=== PATIENT | female | born 1975 | race Two or more races ===

== ENCOUNTER 2024-07-25 13:44 | Inpatient (IN) | payer BC, OTHER ==
[~2024-07-25] VITALS: Ht 157.5 cm; Wt 75.0 kg
[2024-07-25] VITALS (7 sets, daily range): BP systolic 100–136; BP diastolic 55–74; PULSE 99–110; RESP 18–20; TEMP 98.7–99.1; O2SAT 94–100
--- NOTE | 2024-07-25 14:16 | ECG ---
[facility] Test Date: 2024-07-25 Test Time: 14:03:54 Pat Name: BALTAZAR PAINTER Department: ER Room: Gender: F Rating Specialist: MARIA ESTHER : 1975 Requested By: FRANCY MONTGOMERY Order Number: [id number] Reading MD: Measurements Intervals [place] Rate: 110 P: 23 FL: 121 QRS: 19 QRSD: 74 T: 26 QT: 317 QTc: 429 Interpretive Statements Sinus tachycardia Probable left atrial enlargement Left ventricular hypertrophy Baseline wander in lead(s) V1,V2,V3,V4,V5 Please click the below link to view image of tracing.
--- NOTE | 2024-07-25 14:43 | ED.PDOC ---
SOB-HPI HPI Comments 49 year old female presents to the ED with a chief complaint of shortness of breath onset 1 day. PMHx asthma. Patient states she has been experiencing shortness of breath for the past day, has used inhaler with no relief. She woke up today experiencing chest pain, headache, sore throat, and shortness of breath worsened. Last attack was about 1 week ago. Denies dizziness, nausea, vomiting, diarrhea, abdominal pain, blurry vision, fever, chills. No other symptoms or modifying factors present at this time. 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 Family History Family History: Reviewed,noncontributory to illness, No family hx of Cancer, No family hx of DM, No family hx of Heart marion, No family hx of HTN, No family hx ofKidney marion, No family hx of Liver marion, No family hx of Lung marion, No family hx of Stroke Social History Smoker: Non-Smoker Alcohol: Denies ETOH Use Drugs: Denies Drug Use Lives In: Home Constitutional: denies: chills, diaphoresis, fatigue, fever, malaise, sweats, weakness, others EENTM: reports: throat pain; denies: blurred vision, double vision, ear bleeding, ear discharge, ear drainage, ear pain, ear ringing, eye pain, eye redness, hearing loss, mouth pain, mouth swelling, nasal discharge, nose bleeding, nose congestion, nose pain, photophobia, tearing, throat swelling, voice changes, others Respiratory: reports: shortness of breath; denies: cough, hemoptysis, orthopnea, SOB at rest, SOB with excertion, stridor, wheezing, others Cardiovascular: reports: chest pain; denies: dizzy spells, diaphoresis, Dyspnea on exertion, edema, irregular heart beat, left arm pain, lightheadedness, palpitations, PND, syncope, others Gastrointestinal: denies: abdomen distended, abdominal pain, blood streaked bowels, constipated, diarrhea, dysphagia, difficulty swallowing, hematemesis, melena, nausea, poor appetite, poor fluid intake, rectal bleeding, rectal pain, vomiting, others Genitourinary: denies: abnormal vagina bleeding, burning, dyspareunia, dysuria, flank pain, frequency, hematuria, incontinence, pain, , vagina discharge, urgency, others Neurological: reports: headache; denies: dizziness, fainting, left sided numbness, left sided weakness, numbness, paresthesia, pre-existing deficit, right sided numbness, right sided weakness, seizure, speech problems, tingling, tremors, weakness, others Musculoskeletal: denies: back pain, gout, joint pain, joint swelling, muscle pain, muscle stiffness, neck pain, others Integumetry: denies: bruises, change in color, change in hair/nails, dryness, laceration, lesions, lumps, rash, wounds, others Allergic/Immunocompromised: denies: Difficulty Healing, Frequent Infections, Hives, Itching, others Hematologic/Lymphatic: denies: anemia, blood clots, easy bleeding, easy bruising, swollen glands, others Endocrine: denies: excessive hunger, excessive sweating, excessive thirst, excessive urination, flushing, intolerance to cold, intolerance to heat, unexplained weight gain, unexplained weight loss, others Psychiatric: denies: anxiety, bipolar disorder, depression, hopeless, panic disorder, schizophrenia, sleepless, suicidal, others All Other Systems: Reviewed and Negative Physical Exam General Appearance: Moderate Distress, Normal HEENT: Normal ENT Inspection, Pharynx Normal, TMs Normal Neck: Full Range of Motion, Non-Tender, Normal, Normal Inspection Respiratory: Chest Non-Tender, No Accessory Muscle Use, Wheezing Cardiovascular: No Edema, No JVD, No Murmur, No Gallop, Normal Peripheral Pulses, Tachycardia Breast Exam: Deferred Gastrointestinal: No Organomegaly, Non Tender, No Pulsatile Mass, Normal Bowel Sounds, Soft Genitalia: Deferred Pelvic: Deferred Rectal: Deferred Extremities: No calf tenderness, Normal capillary refill, Normal inspection, Normal range of motion, Non-tender, No pedal edema Musculoskeletal : Apperance: Normal Neurologic: Alert, quality assurance supervisor body II-XII nml as Tested, No Motor Deficits, Normal Affect, Normal Mood, No Sensory Deficits Cerebellar Function: Normal Reflexes: Normal Skin: Dry, Normal Color, Warm Peripheral Pulses: 3+ Radial (R), 3+ Radial (L) Lymphatic: No Adenopathy EKG EKG : Pulse Rate (adult): 110 Cardiac Rhythm: ST Was a procedure done? Was a procedure done?: No Differential Dx Differential Diagnosis: Anxiety, Asthma, Bronchitis, CHF, COPD X-Ray, Labs, Meds, VS Vital Signs Date Time Temp Pulse Resp B/P (MAP) Pulse Ox O2 Delivery O2 Flow Rate FiO2 07/25/24 16:55 99.1 110 18 136/55 98 0.0 21 99.1 07/25/24 15:05 18 98 Room Air* 0 21 07/25/24 14:43 110 07/25/24 14:04 110 07/25/24 13:56 99.1 122 24 136/55 (82) 100 99.1 07/25/24 13:56 24 100 Room Air* 0 21 Lab Test 07/25/24 16:27 07/25/24 15:48 Range/Units Urine Color Yellow Yellow Urine Clarity Clear Clear Urine pH 5.5 5.0-9.0 Urine Specific [place] 1.024 1.001-1.035 Urine Protein Negative Negative Urine Ketones Trace Negative Urine Blood Trace H Negative /uL Urine Nitrite Negative Negative Urine Bilirubin Negative Negative Urine Urobilinogen 8 H Negative mg/dL Urine Leukocyte Esterase Negative Negative /uL Urine RBC 1 0 - 4 /hpf Urine Microscopic WBC 3 0-5 /HPF Urine Squamous Epithelial Cells Few <5 /hpf Urine Bacteria None seen None Seen /hpf Urine Mucus Few None Seen Urine Glucose Normal Normal mg/dL White Blood Count 8.3 4.4-10.8 10^3/uL Red Blood Count 4.12 4.0-5.20 10^6/uL Hemoglobin 9.6 L 12.2-16.2 g/dL Hematocrit 30.1 L 36.0-46.0 % Mean Corpuscular Volume 73.2 L 80.0-100.0 fL Mean Corpuscular Hemoglobin 23.2 L 28.0-32.0 pg Mean Corpuscular Hemoglobin Concent 31.7 L 32.0-36.0 g/dL Red Cell Distribution Width 15.8 H 11.8-14.3 % Platelet Count 323 140-450 10^3/uL Mean Platelet Volume 7.5 6.9-10.8 fL Neutrophils (%) (Auto) 47.2 37.0-80.0 % Lymphocytes (%) (Auto) 36.8 10.0-50.0 % Monocytes (%) (Auto) 9.6 0.0-12.0 % Eosinophils (%) (Auto) 5.1 0.0-7.0 % Basophils (%) (Auto) 1.3 0.0-2.0 % Neutrophils # (Auto) 3.9 1.6-8.6 10 ^3/uL Lymphocytes # (Auto) 3.1 0.4-5.4 10 ^3/uL Monocytes # (Auto) 0.8 0-1.3 10 ^3/uL Eosinophils # (Auto) 0.4 0-0.8 10 ^3/uL Basophils # (Auto) 0.1 0-0.2 10 ^3/uL Nucleated Red Blood Cells 0.1 % D-Dimer, Quantitative 0.38 0.0-0.49 mg/L FEU Troponin I High Sensitivity 3 L </=34 ng/L Current Medications Medications (Trade) Dose Ordered Sig/Luis Route Start Time Stop Time Status Last Admin Albuterol (Ventolin Medneb) 5 mg ONCE ONCE NEB 07/25/24 15:00 07/25/24 15:01 DC 07/25/24 15:05 Ipratropium [place] (Atrovent Medneb) 0.5 mg ONCE ONCE NEB 07/25/24 15:00 07/25/24 15:01 DC 07/25/24 15:05 Methylprednisolone Sodium Succinate (Solu Medrol) 125 mg ONCE ONCE IV 07/25/24 15:00 07/25/24 15:01 DC 07/25/24 15:16 Magnesium Sulfate/ Dextrose 100 ml @ 100 mls/hr ONCE ONCE IV 07/25/24 15:45 07/25/24 16:44 DC 07/25/24 16:04 Acetaminophen (Tylenol Tablet) 650 mg ONCE ONCE PO 07/25/24 16:00 07/25/24 16:01 DC 07/25/24 16:04 Patient alert. Shortness a breath. History of asthma. Tachycardia. She is saturating 100% on room air. Was given breathing treatment. Mild fever. Was given steroid. She will need further workup to control her airway. Explained to the patient why she will be admitted. Continue cardiac monitoring. Time of 1ST Reevaluation: 14:42 Reevaluation 1ST: Unchanged Patient Education/Counseling: Diagnosis, Treatment, Prognosis Family Education/Counseling: No Family Present Departure 1 Departure Time of Disposition: 15:39 Impression: Primary Impression: Asthma exacerbation Qualified Codes: J45.41 - Moderate persistent asthma with (acute) exacerbation Additional Impression: Anemia Qualified Codes: D64.9 - Anemia, unspecified Disposition: 09 ADMITTED INPATIENT Admit to: Med Surg Condition: Guarded Critical Care Note Critical Care Time?: Yes (90 min-critical care time only) Critical care comment: Monitor asthma Stability Stability form required: No Heart Score Heart Score: Heart Score Response (Comments) Value History N/A 0 EKG N/A 0 Age N/A 0 Risk Factors N/A 0 Troponin N/A 0 Total 0 I personally scribed for FRANCY MONTGOMERY MD ([email or web address]) on 07/25/24 at 14:43. Electronically submitted by Bernie Henderson ([email or web address]). FRANCY MONTGOMERY MD July 25, 2024 14:43
[2024-07-25] MEDS: ALBUTEROL SULF 2.5 MG/0.5ML(0.5%) NEB SOLN NEB ONE (15:05)
[2024-07-25] MEDS: IPRATROPIUM BROM 0.5 MG/2.5ML INH SOL NEB ONE (15:05)
[2024-07-25] MEDS: methylPREDNISolone SOD SUCC 125 MG/2 ML VL IV ONE (15:16)
--- NOTE | 2024-07-25 15:17 | DVH ---
INDICATION: asthma TECHNIQUE: Frontal view of the chest. COMPARISON: None FINDINGS: Findings:. The heart and mediastinal contours are grossly unremarkable. There is no evidence of pleu ral disease. The lungs are clear. The bony structures of the chest are intact without fracture. IMPRESSION: 1. No evidence of acute disease.
[2024-07-25 15:57] LABS: Basophils # (auto) 0.1 10 ^3/uL (0-0.2); Basophils % (auto) 1.3 % (0.0-2.0); Eosinophils # (auto) 0.4 10 ^3/uL (0-0.8); Eosinophils % (auto) 5.1 % (0.0-7.0); Hematocrit 30.1 % (36.0-46.0); Hemoglobin 9.6 g/dL (12.2-16.2); Lymphocytes # (auto) 3.1 10 ^3/uL (0.4-5.4); Lymphocytes % (auto) 36.8 % (10.0-50.0); Mean Corpuscular Hemoglobin 23.2 pg (28.0-32.0); Mean Corpuscular Hgb Conc. 31.7 g/dL (32.0-36.0); Mean Corpuscular Volume 73.2 fL (80.0-100.0); Monocytes # (auto) 0.8 10 ^3/uL (0-1.3); Monocytes % (auto) 9.6 % (0.0-12.0); Neutrophils # (auto) 3.9 10 ^3/uL (1.6-8.6); Neutrophils % (auto) 47.2 % (37.0-80.0); Nucleated Red Blood Cells % 0.1 %; Platelet Count (auto) 323 10^3/uL (140-450); Red Blood Cells 4.12 10^6/uL (4.0-5.20); Red Cell Distribution Width 15.8 % (11.8-14.3); White Blood Cell 8.3 10^3/uL (4.4-10.8)
[2024-07-25] MEDS: ACETAMINOPHEN 325 MG TAB PO ONE (16:04)
[2024-07-25] MEDS: MAGNESIUM SULFATE 1GM/100ML 100 ML IV ONE (16:04)
[2024-07-25 16:44] LABS: Urine Bacteria None Seen /hpf (None Seen)
[2024-07-25 16:48] LABS: Urine Blood TRACE /uL (Negative); Urine Clarity Clear (Clear); Urine Color Yellow (Yellow); Urine Mucus FEW (None Seen); Urine Protein, UAD Negative (Negative); Urine Specific Gravity 1.024 (1.001-1.035); Urine Squamous Epithelial Cell FEW /hpf (<5); Urine Urobilinogen 8 mg/dL (Negative); Urine WBC 3 /HPF (0-5); Urine pH 5.5 (5.0-9.0)
--- NOTE | 2024-07-25 16:49 | DVHHP2 ---
Admitting Diagnosis: Shortness of breaths History of Present Illness 49 year old female presents to the ED with a chief complaint of shortness of breath onset 1 day. PMHx asthma. Patient states she has been experiencing shortness of breath for the past day, has used inhaler with no relief. She woke up today experiencing chest pain, headache, sore throat, and shortness of breath worsened. Last attack was about 1 week ago. Denies dizziness, nausea, vomiting, diarrhea, abdominal pain, blurry vision, fever, chills. No other symptoms or modifying factors present at this time. 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 Family History: Reviewed,noncontributory to illness, No family hx of Cancer, No family hx of DM, No family hx of Heart marion, No family hx of HTN, No family hx ofKidney marion, No family hx of Liver marion, No family hx of Lung marion, No family hx of Stroke Social History Smoker: Non-Smoker Alcohol: Denies ETOH Use Drugs: Denies Drug Use Lives In: Home Allergies: Coded Allergies: NO KNOWN ALLERGIES (Unverified , 07/25/24) Current Medications Current Medications Medications (Trade) Dose Ordered Sig/Luis Route PRN Reason Start Time Stop Time Status Last Admin Albuterol (Ventolin Medneb) 2.5 mg Q6H NEB 07/25/24 17:00 07/25/24 16:55 DC Ipratropium [place] (Atrovent Medneb) 0.5 mg Q6H NEB 07/25/24 17:00 07/25/24 16:55 DC Methylprednisolone Sodium Succinate (Solu Medrol) 62.5 mg Q6H IV 07/25/24 21:00 Pantoprazole Sodium (Protonix) 40 mg DAILY IV 07/26/24 10:00 Albuterol (Ventolin Medneb) 2.5 mg Q6H NEB 07/25/24 18:00 07/25/24 18:16 Ipratropium [place] (Atrovent Medneb) 0.5 mg Q6H NEB 07/25/24 18:00 07/25/24 18:15 Vital Signs Vital Signs Date Time Temp Pulse Resp B/P (MAP) Pulse Ox O2 Delivery O2 Flow Rate FiO2 07/25/24 18:25 110 18 100 07/25/24 18:15 Room Air 07/25/24 18:15 0 21 07/25/24 16:55 99.1 136/55 99.1 Physical Exam Generally-69 years old woman, well nourished well developed. Distress HEENT-atraumatic, normocephalic Heart-regular rate and rhythm Lungs-decreased breath sounds posterior lung elizabeth, mild wheezing anterior Abdomen soft nontender nondistended Musculoskeletal nondistended, cyanosis Neuro-AO x3, no focal deficits Results Labs Test 07/25/24 17:29 07/25/24 16:27 07/25/24 15:48 Range/Units Lactic Acid Level 1.7 0.4-2.0 mmol/L Urine Color Yellow Yellow Urine Clarity Clear Clear Urine pH 5.5 5.0-9.0 Urine Specific [place] 1.024 1.001-1.035 Urine Protein Negative Negative Urine Ketones Trace Negative Urine Blood Trace H Negative /uL Urine Nitrite Negative Negative Urine Bilirubin Negative Negative Urine Urobilinogen 8 H Negative mg/dL Urine Leukocyte Esterase Negative Negative /uL Urine RBC 1 0 - 4 /hpf Urine Microscopic WBC 3 0-5 /HPF Urine Squamous Epithelial Cells Few <5 /hpf Urine Bacteria None seen None Seen /hpf Urine Mucus Few None Seen Urine Glucose Normal Normal mg/dL White Blood Count 8.3 4.4-10.8 10^3/uL Red Blood Count 4.12 4.0-5.20 10^6/uL Hemoglobin 9.6 L 12.2-16.2 g/dL Hematocrit 30.1 L 36.0-46.0 % Mean Corpuscular Volume 73.2 L 80.0-100.0 fL Mean Corpuscular Hemoglobin 23.2 L 28.0-32.0 pg Mean Corpuscular Hemoglobin Concent 31.7 L 32.0-36.0 g/dL Red Cell Distribution Width 15.8 H 11.8-14.3 % Platelet Count 323 140-450 10^3/uL Mean Platelet Volume 7.5 6.9-10.8 fL Neutrophils (%) (Auto) 47.2 37.0-80.0 % Lymphocytes (%) (Auto) 36.8 10.0-50.0 % Monocytes (%) (Auto) 9.6 0.0-12.0 % Eosinophils (%) (Auto) 5.1 0.0-7.0 % Basophils (%) (Auto) 1.3 0.0-2.0 % Neutrophils # (Auto) 3.9 1.6-8.6 10 ^3/uL Lymphocytes # (Auto) 3.1 0.4-5.4 10 ^3/uL Monocytes # (Auto) 0.8 0-1.3 10 ^3/uL Eosinophils # (Auto) 0.4 0-0.8 10 ^3/uL Basophils # (Auto) 0.1 0-0.2 10 ^3/uL Nucleated Red Blood Cells 0.1 % D-Dimer, Quantitative 0.38 0.0-0.49 mg/L FEU Sodium Level 140 136-145 mmol/L Potassium Level 3.8 3.5-5.1 mmol/L Chloride Level 104 98-107 mmol/L Carbon Dioxide Level 24 20-31 mmol/L Anion Gap 12 5-15 Blood Urea Nitrogen 7 L 9-23 mg/dL Creatinine 0.68 0.550-1.02 mg/dL Glomerular Filtration Rate Calc 106 >90 mL/min BUN/Creatinine Ratio 10.3 10.0-20.0 Serum Glucose 123 H 74-106 mg/dL Calcium Level 9.6 8.7-10.4 mg/dL Total Bilirubin 0.3 0.2-1.0 mg/dL Aspartate Amino Transferase (AST) 14 13-40 U/L Alanine Aminotransferase (ALT) 12 7-40 U/L Alkaline Phosphatase 72 46-116 U/L Troponin I High Sensitivity 3 L </=34 ng/L Total Protein 7.1 5.7-8.2 g/dL Albumin 4.0 3.2-4.8 g/dL Primary Diagnosis Acute moderate asthma exacerbation Plan Status post Solu-Medrol 125 mg x1 Solu-Medrol 60 mg q.6 hours Duo nebs q.6 hours Diet IV fluids Full code For DVT prophylaxis PPI for GI prophylaxis Plan discussed with: Patient Problems List: (1) Asthma exacerbation Status: Acute Date of Service: July 25, 2024 Billing Provider: TYRON SHERWOOD MD Common Visit Codes: [id number] INP/OBS CARE (MOD) TYRON SHERWOOD MD July 25, 2024 16:48
[2024-07-25] MEDS ORDERED: ALBUTEROL SULF 2.5 MG/0.5ML(0.5%) NEB SOLN NEB SCH (17:00)
[2024-07-25] MEDS ORDERED: IPRATROPIUM BROM 0.5 MG/2.5ML INH SOL NEB SCH (17:00)
[2024-07-25 18:14] LABS: Alanine Aminotransferase 12 U/L (7-40); Alkaline Phosphatase 72 U/L (46-116); Anion Gap 12 (5-15); Aspartate Aminotransferase 14 U/L (13-40); BUN/Creatinine Ratio 10.3 (10.0-20.0); Bilirubin, Total 0.3 mg/dL (0.2-1.0); Calcium 9.6 mg/dL (8.7-10.4); Carbon Dioxide 24 mmol/L (20-31); Chloride 104 mmol/L (98-107); Potassium 3.8 mmol/L (3.5-5.1); Sodium 140 mmol/L (136-145); Total Protein 7.1 g/dL (5.7-8.2)
[2024-07-25] MEDS: IPRATROPIUM BROM 0.5 MG/2.5ML INH SOL NEB SCH (18:15)
[2024-07-25] MEDS: ALBUTEROL SULF 2.5 MG/0.5ML(0.5%) NEB SOLN NEB SCH (18:16)
[2024-07-25 18:19] LABS: Blood Urea Nitrogen 7 mg/dL (9-23); Glucose 123 mg/dL (74-106)
[2024-07-25] MEDS ORDERED: ONDANSETRON HCL 4 MG/2 ML VIAL IV PRN (19:00)
[2024-07-25] MEDS ORDERED: HYDROcodone-ACET 5/325MG TAB PO PRN (19:00)
[2024-07-25] MEDS ORDERED: DOCUSATE SOD 100 MG CAP PO PRN (19:00)
[2024-07-25] MEDS ORDERED: ACETAMINOPHEN 325 MG TAB PO PRN (19:00)
[2024-07-25] MEDS: methylPREDNISolone SOD SUCC 125 MG/2 ML VL IV SCH (20:51)
[2024-07-25] MEDS: SODIUM CHLOR 0.9% PF (SALINE LOCK) 10ML VIAL/SYR IV SCH (20:51)
[2024-07-25] MEDS ORDERED: PNEUMOCOCCAL VACC POLYS 25 MCG/0.5 ML VIAL IM SCH (22:00)
[2024-07-25] MEDS ORDERED: PNEUMOCOCCAL VACC POLYS 25 MCG/0.5 ML VIAL IM ONE (22:45)
[2024-07-25 23:28] LABS: Rapid Influenza A Negative (Negative); Rapid Influenza B Negative (Negative)
[2024-07-26] VITALS (8 sets, daily range): BP systolic 114–148; BP diastolic 56–79; PULSE 75–101; RESP 16–18; TEMP 96.7–97.9; O2SAT 95–97
[2024-07-26 07:28] LABS: Eosinophils # (auto) 0 10 ^3/uL (0-0.8); Lymphocytes # (auto) 0.8 10 ^3/uL (0.4-5.4); Monocytes # (auto) 0 10 ^3/uL (0-1.3); Monocytes % (auto) 0.8 % (0.0-12.0); Neutrophils % (auto) 82.2 % (37.0-80.0); White Blood Cell 4.9 10^3/uL (4.4-10.8)
[2024-07-26 07:31] LABS: Alanine Aminotransferase 13 U/L (7-40); Alkaline Phosphatase 69 U/L (46-116); Anion Gap 8 (5-15); Basophils # (auto) 0.1 10 ^3/uL (0-0.2); Basophils % (auto) 1.2 % (0.0-2.0); Bilirubin, Total 0.3 mg/dL (0.2-1.0); Blood Urea Nitrogen 11 mg/dL (9-23); Calcium 9.6 mg/dL (8.7-10.4); Carbon Dioxide 26 mmol/L (20-31); Chloride 106 mmol/L (98-107); Glucose 189 mg/dL (74-106); Hematocrit 31.8 % (36.0-46.0); Lymphocytes % (auto) 15.8 % (10.0-50.0); Mean Corpuscular Hgb Conc. 31.6 g/dL (32.0-36.0); Mean Corpuscular Volume 72.6 fL (80.0-100.0); Platelet Count (auto) 323 10^3/uL (140-450); Potassium 4.4 mmol/L (3.5-5.1); Red Blood Cells 4.38 10^6/uL (4.0-5.20); Red Cell Distribution Width 15.7 % (11.8-14.3); Sodium 140 mmol/L (136-145); Total Protein 7.3 g/dL (5.7-8.2)
[2024-07-26 07:32] LABS: Aspartate Aminotransferase 9 U/L (13-40)
[2024-07-26] MEDS: ENOXAPARIN SOD 40 MG/0.4 ML SYRINGE SC SCH (09:04)
[2024-07-26] MEDS: PANTOPRAZOLE 40 MG/10 ML VIAL INJ IV SCH (09:05)
[2024-07-26] MEDS ORDERED: ALBU0.084 NEB (14:35)
--- NOTE | 2024-07-26 14:38 | DVHDS2 ---
Discharge Summary Date of Admission July 25, 2024 at 18:46 Date of Discharge: July 26, 2024 Admitting Diagnosis Acute moderate asthma exacerbation Labs/Diagnostic Data: Laboratory Results Test 07/26/24 06:35 07/25/24 22:50 07/25/24 17:29 07/25/24 16:27 White Blood Count 4.9 10^3/uL (4.4-10.8) Red Blood Count 4.38 10^6/uL (4.0-5.20) Hemoglobin 10.0 g/dL (12.2-16.2) Hematocrit 31.8 % (36.0-46.0) Mean Corpuscular Volume 72.6 fL (80.0-100.0) Mean Corpuscular Hemoglobin 23.0 pg (28.0-32.0) Mean Corpuscular Hemoglobin Concent 31.6 g/dL (32.0-36.0) Red Cell Distribution Width 15.7 % (11.8-14.3) Platelet Count 323 10^3/uL (140-450) Mean Platelet Volume 7.8 fL (6.9-10.8) Neutrophils (%) (Auto) 82.2 % (37.0-80.0) Lymphocytes (%) (Auto) 15.8 % (10.0-50.0) Monocytes (%) (Auto) 0.8 % (0.0-12.0) Eosinophils (%) (Auto) 0.0 % (0.0-7.0) Basophils (%) (Auto) 1.2 % (0.0-2.0) Neutrophils # (Auto) 4.0 10 ^3/uL (1.6-8.6) Lymphocytes # (Auto) 0.8 10 ^3/uL (0.4-5.4) Monocytes # (Auto) 0 10 ^3/uL (0-1.3) Eosinophils # (Auto) 0 10 ^3/uL (0-0.8) Basophils # (Auto) 0.1 10 ^3/uL (0-0.2) Nucleated Red Blood Cells 0.0 % Sodium Level 140 mmol/L (136-145) Potassium Level 4.4 mmol/L (3.5-5.1) Chloride Level 106 mmol/L (98-107) Carbon Dioxide Level 26 mmol/L (20-31) Anion Gap 8 (5-15) Blood Urea Nitrogen 11 mg/dL (9-23) Creatinine 0.61 mg/dL (0.550-1.02) Glomerular Filtration Rate Calc 109 mL/min (>90) BUN/Creatinine Ratio 18.0 (10.0-20.0) Serum Glucose 189 mg/dL (74-106) Calcium Level 9.6 mg/dL (8.7-10.4) Total Bilirubin 0.3 mg/dL (0.2-1.0) Aspartate Amino Transferase (AST) 9 U/L (13-40) Alanine Aminotransferase (ALT) 13 U/L (7-40) Alkaline Phosphatase 69 U/L (46-116) Total Protein 7.3 g/dL (5.7-8.2) Albumin 4.0 g/dL (3.2-4.8) Influenza Type A Antigen Negative (Negative) Influenza Type B Antigen Negative (Negative) Lactic Acid Level 1.7 mmol/L (0.4-2.0) Urine Color Yellow (Yellow) Urine Clarity Clear (Clear) Urine pH 5.5 (5.0-9.0) Urine Specific [place] 1.024 (1.001-1.035) Urine Protein Negative (Negative) Urine Ketones Trace (Negative) Urine Blood Trace /uL (Negative) Urine Nitrite Negative (Negative) Urine Bilirubin Negative (Negative) Urine Urobilinogen 8 mg/dL (Negative) Urine Leukocyte Esterase Negative /uL (Negative) Urine RBC 1 /hpf (0 - 4) Urine Microscopic WBC 3 /HPF (0-5) Urine Squamous Epithelial Cells Few /hpf (<5) Urine Bacteria None seen /hpf (None Seen) Urine Mucus Few (None Seen) Urine Glucose Normal mg/dL (Normal) Test 07/25/24 15:48 D-Dimer, Quantitative 0.38 mg/L FEU (0.0-0.49) Troponin I High Sensitivity 3 ng/L (</=34) Other Laboratory Tests 07/26/24 06:35 Brief Hx & Hospital Course: History of Present Illness 49 year old female presents to the ED with a chief complaint of shortness of breath onset 1 day. PMHx asthma. Patient states she has been experiencing shortness of breath for the past day, has used inhaler with no relief. She woke up today experiencing chest pain, headache, sore throat, and shortness of breath worsened. Last attack was about 1 week ago. Denies dizziness, nausea, vomiting, diarrhea, abdominal pain, blurry vision, fever, chills. No other symptoms or modifying factors present at this time. Course of hospitalization: Further discussion with the patient reveals that she was around smoke inhalant which triggered her asthma exacerbation. Patient states that she has completed her steroid dose at home. Patient was treated with bronchodilators, IV steroids. Today, the patient has clear breath sounds, denies any wheezing or chest pain, and is on room air. Patient will be discharged home as instructed to follow up with her PCP miryam. Patient will have a refill with her albuterol nebulizer, given that she states that she has ran out of medication is currently waiting for PCP prescription. Physical examination General: Alert and Oriented x3. No acute distress. Well-nourished. Eyes: EOMI. Anicteric. HENT: Moist mucous membranes. Lungs: Clear to auscultation bilaterally. No accessory muscle use. Cardiovascular: Regular rate and rhythm. No murmur. No JVD. Abdomen: Soft, non-tender and non-distended. No palpable masses. Extremities: No edema. Non-tender. Skin: No rashes or lesions. Warm. Neurologic: No focal neurological deficits. CN II-XII grossly intact, but not individually tested. Psychiatric: Cooperative. Appropriate mood and affect. Total time spent with patient discussing and formulating plan of care: 35 minutes. This medical document was created using an electronic medical record system with [employer] dictation system. Although this document has been carefully reviewed, there may still be some phonetic and typographical errors. These areas are purely typographical due to imperfections of the software programs, and do not reflect any compromise in the patient's medical care. Condition at Discharge: Fair Final Diagnosis/Problems List Acute asthma exacerbation Secondary diagnosis: Asthma Obesity Discharge Disposition: Home Discharge Instruct/Medications Diet: Regular Activity: No Restrictions, As Tolerated Follow Up/Referral: PCP in 1-2 weeks Medications: continue home medications 36 Discharge Statement: "Patient was advised to return to the ER or call 911 if any headaches, dizziness, shortness of breath, chest pain, abdominal pain, bleeding, fevers, or worsening of medical condition. Patient was counseled about treatment plan, medications, possible side effects, patientverbalized understanding. All questions were answered to the best of my ability. This discharge took greater then 30 minutes in planning, reviewing documentation, counseling the patient, and discussing with other team members." ASSESSMENT ASSESSMENT Assessment Acute asthma exacerbation Date of Service: July 26, 2024 Billing Provider: AWILDA CHACON NP Common Visit Codes: [id number] INP/OBS CARE(HIGH) AWILDA CHACON NP July 26, 2024 14:38
== END 2024-07-26 17:42 | disposition home or self-care (01) | DRG 203 ==
LOC: ER 13:54 → OVERFLOW 18:46 → WEST WING 23:55
PROVIDERS: ADMIT Nurse Practitioner Acute Care; ATTEND Nurse Practitioner Acute Care
DX: J45.901 Unspecified asthma with (acute) exacerbation (principal); D64.9 Anemia, unspecified; E66.9 Obesity, unspecified; Z98.51 Tubal ligation status; Z68.30 Body mass index [BMI] 30.0-30.9, adult; Z79.899 Other long term (current) drug therapy
CPT/HCPCS: 36415; 71045; 80053; 81001; 83605; 84484; 85025; 85379; 87081; 87804; 93005; 94640; 99291; 99292; G0378; J2470